=== PATIENT | male | born 1980 | race Caucasian/White ===

== ENCOUNTER 2017-12-31 19:16 | Emergency (ER) | payer MEDICAID ==
[2017-12-31] MEDS: IBUPROFEN 600 MG TAB PO (19:45)
== END 2017-12-31 20:27 | disposition home or self-care (01) ==
LOC: FTE 19:16
DX: R05 Cough (principal); E11.9 Type 2 diabetes mellitus without complications
CPT/HCPCS: 71046; 99283-25